=== PATIENT | male | born 1990 | race American Indian/Alaskan Native ===

== ENCOUNTER 2017-08-21 00:08 | Emergency (ER) | payer SELFPAY ==
[2017-08-21 07:50] LABS: Bilirubin,Urine NEG (Negative); Blood,Urine NEG (Negative); Color,Urine Yellow (Yellow); Mucus,Urine FEW /HPF; Nitrite,Urine NEG (Negative); Protein,Urine <15 mg/dL mg/dL (Negative); RBC,Urine < 1.0 /HPF (0.0-6.0); WBC,Urine < 1.0 /HPF (0.0-6.0)
[2017-08-21 08:09] LABS: Benzodiazepines Screen,Urine PRESUMPTIVE NEGATIVE; Cocaine Screen,Urine PRESUMPTIVE NEGATIVE; Methadone Screen,Urine PRESUMPTIVE NEGATIVE; Opiate Screen,Urine PRESUMPTIVE NEGATIVE
[2017-08-21 08:25] LABS: Amphetamine Screen,Urine PRESUMPTIVE POSITIVE; Cannabinoid Screen,Urine PRESUMPTIVE POSITIVE
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
[2017-08-21 10:15] VITALS: BP 120/69
== END 2017-08-21 10:30 | disposition home or self-care (01) ==
LOC: ED 00:08
DX: T43.625A Adverse effect of amphetamines, initial encounter (principal); Y92.89 Other specified places as the place of occurrence of the external cause
CPT/HCPCS: 80307; 81001; 99282

== ENCOUNTER 2020-06-22 10:57 | Emergency (ER) | payer SELFPAY ==
[2020-06-22 11:04] VITALS: BP 121/90
--- NOTE | 2020-06-22 12:54 | Event Note ---
ED Screening Note Date of service: 06/22/20 Time: 12:53 ED Screening Note: 29-year-old -[place] male presents to the emergency room for bilateral feet pain history given by EMS. Patient has difficulty answering questions. It was reported that patient was seen yesterday by another facility and he states that he left. Patient comes in asking for food. This initial assessment/diagnostic orders/clinical plan/treatment(s) is/are subject to change based on patients health status, clinical progression and re- assessment by fellow clinical providers in the ED. Further treatment and workup at subsequent clinical providers discretion. Patient/guardian urged not to elope from the ED as their condition may be serious if not clinically assessed and managed. Initial orders include:
--- NOTE | 2020-06-22 20:48 | Emergency Department Report ---
ED Medical Clearance HPI - General Chief complaint: Medical Clearance Stated complaint: FOOT PAIN Time Seen by Provider: 06/22/20 20:45 Source: patient, EMS Mode of arrival: Wheelchair - History of Present Illness Initial comments: Chief complaint: Foot burning HPI: This is a 29-year-old male who presents via EMS. He states that my feet are burning. Hungry. He admits to being homeless. He admits to methamphetamine and cocaine use. He states that he has "nowhere to go". He has no shoes. MD Complaint: other (Homeless, hungry, foot burning) -: Gradual, days(s) (Several days) Alledged Intoxication: No Traumatic Symptoms: denies traumatic injury Treatments Prior to Arrival: other (EMS transport) Allergies/Adverse reactions: Allergies Allergy/AdvReac Type Severity Reaction Status Date / Time No Known Allergies Allergy Verified 06/22/20 10:57 ED Review of Systems ROS: Stated complaint: FOOT PAIN Other details as noted in HPI Comment: All other systems reviewed and negative Constitutional: denies: fever, malaise Respiratory: denies: cough, shortness of breath Cardiovascular: denies: chest pain ED Past Medical Hx - Past Medical History Previous Medical History?: No Additional medical history: unable to obtain history - Surgical History Additional Surgical History: unable to obtain history - Social History Smoking Status: Unknown if ever smoked ED Physical Exam - General Limitations: No Limitations, Other General appearance: alert, in no apparent distress - Head Head exam: Present: atraumatic, normocephalic - Eye Eye exam: Present: normal appearance - ENT ENT exam: Present: mucous membranes moist - Neck Neck exam: Present: normal inspection, full ROM - Respiratory Respiratory exam: Present: normal lung sounds bilaterally. Absent: respiratory distress, wheezes, rales, rhonchi - Cardiovascular Cardiovascular Exam: Present: regular rate, normal rhythm, normal heart sounds. Absent: systolic murmur, diastolic murmur, rubs, gallop - GI/Abdominal GI/Abdominal exam: Present: soft, normal bowel sounds. Absent: distended, tenderness, guarding, rebound - Rectal Rectal exam: Present: deferred - Extremities Exam Extremities exam: Present: other (Bilateral feet exam: No erythema, intact skin) - Neurological Exam Neurological exam: Present: alert, oriented X3 - Psychiatric Psychiatric exam: Present: normal affect, normal mood - Skin Skin exam: Present: warm, dry, intact, normal color. Absent: rash ED Course Vital Signs 06/22/20 11:03 Temperature 98.1 F Pulse Rate 62 Respiratory 20 Rate Blood Pressure 121/90 [Left] O2 Sat by Pulse 100 Oximetry ED Medical Decision Making - Medical Decision Making 1. Foot burning possible pain due to cold and moisture exposure. Patient does not have any shoes. Warm socks was provided to the patient. I asked charge nurse to provide shoes if available. 2. Homelessness. Homeless shelters were recommended to patient. He was not receptive. ED Disposition Clinical Impression: Burning sensation of feet, Homelessness Disposition: DC-01 TO HOME OR SELFCARE Is pt being admited?: No Does the pt Need Aspirin: No Condition: Stable
== END 2020-06-22 21:22 | disposition home or self-care (01) ==
LOC: ED 10:57
DX: E53.9 Vitamin B deficiency, unspecified (principal); Z59.0 Homelessness
CPT/HCPCS: 99283